=== PATIENT | female | born 1990 | race Caucasian/White ===

== ENCOUNTER → 2017-03-17 | Outpatient (CLI) | payer OTHER | LOC: FIMAGING 12:45 | PROVIDERS: ATTEND Internal Medicine | DX: N63 Unspecified lump in breast (principal) ==

== ENCOUNTER 2017-04-07 10:07 | Day surgery (SDC) | payer OTHER ==
[~2017-04-07 10:07] MED LIST: BUPIVACAINE 0.5% 30 ML SDV ONE; THROMBIN (BOVINE) 20,000 UNIT SPRAY TP ONE
[2017-04-07] MEDS ORDERED: LR 1,000 ML IV ONE (10:40)
[2017-04-07] MEDS ORDERED: ceFAZolin 2 GM/DEXTROSE 100 ML IV ONE (11:00)
[2017-04-07] MEDS ORDERED: MIDAZOLAM 2 MG/2 ML VIAL ONE (11:24)
[2017-04-07] MEDS ORDERED: fentaNYL 100 MCG/2 ML INJ ONE ×2 (11:37→12:03)
[2017-04-07] MEDS ORDERED: PROPOFOL/EMULSION 500 MG/50 ML BOTTLE IV ONE (11:39)
[2017-04-07] MEDS ORDERED: LIDOCAINE 2% 5 ML SDV ONE (12:03)
[2017-04-07] MEDS ORDERED: DEXAMETHASONE 4 MG/ML VIAL ONE (12:03)
[2017-04-07] MEDS ORDERED: ONDANSETRON 4 MG/2 ML VIAL ONE (12:04)
[2017-04-07] MEDS ORDERED: PROPOFOL 200 MG/20 ML VIAL ONE (12:09)
[2017-04-07] MEDS ORDERED: KETOROLAC 30 MG/1 ML SDV ONE (12:20)
== END 2017-04-07 14:10 | disposition home or self-care (01) ==
LOC: FSGY 10:07
PROVIDERS: ATTEND Surgery
PROC: 0HBT0ZX Excision of Right Breast, Open Approach, Diagnostic (ICD-10-PCS; principal; 2017-04-07 12:30)
DX: D24.1 Benign neoplasm of right breast (principal); N60.21 Fibroadenosis of right breast; N60.11 Diffuse cystic mastopathy of right breast; Z80.3 Family history of malignant neoplasm of breast
CPT/HCPCS: J0690; J1100; J1885; J2250; J2405; J2704; J3010